=== PATIENT | female | born 1950 | race African-American/Black ===

== ENCOUNTER 2016-10-20 19:07 | Emergency (ER) | payer MEDICAID ==
--- NOTE | 2016-10-20 20:20 | ER Document Report ---
ED General - General Mode of Arrival: Medic Information source: Transfer Record TRAVEL OUTSIDE OF THE [place] IN LAST 30 DAYS: No - HPI Onset: Other - see narrative <GIUSEPPE FELIX - Last Filed: 10/20/16 23:41> <PAKO DEL ANGEL - Last Filed: 10/22/16 01:29> - General Chief Complaint: Other Stated Complaint: GENERALIZED PAIN Notes: Patient is a 66-year-old female with schizophrenia, dementia, and bipolar disorder that presents to the emergency department today with complaints of a fall yesterday. Patient is a poor historian secondary to her underlying disease so history is limited. Transfer record is also very limited however the transfer reports states "pain all over" as reason for transfer here. Patient has swelling to her left ankle but no other injuries are noted. (GIUSEPPE FELIX) - Related Data Allergies/Adverse Reactions: Butyrophenones Allergy (Unknown, Verified 09/18/15 10:30) droperidol [Droperidol] Allergy (Unknown, Verified 09/18/15 10:30) haloperidol [From Haldol] Allergy (Unknown, Verified 09/18/15 10:30) Phenothiazines Allergy (Unknown, Verified 09/18/15 10:30) trihexyphenidyl HCl [From Artane] Allergy (Unknown, Verified 09/18/15 10:30) Past Medical History - General Information source: Transfer Record, [facility] Records Cannot obtain history due to: Dementia - Social History Smoking Status: Unknown if Ever Smoked Frequency of alcohol use: None Drug Abuse: None [facility] with: [facility] Family History: Reviewed & Not Pertinent, Other - Unable to obtain - Past Medical History Cardiac Medical History: Reports: Hx Hypertension GI Medical History: Reports: Hx Gastroesophageal Reflux Disease Psychiatric Medical History: Reports: Hx Bipolar Disorder, Hx Dementia, Hx Schizoaffective Disorder, Hx Schizophrenia - Immunizations Immunizations up to date: Yes Hx Diphtheria, Pertussis, Tetanus Vaccination: No - unknown <GIUSEPPE FELIX - Last Filed: 10/20/16 23:41> Review of Systems - Review of Systems -: Yes ROS unobtainable due to patient's medical condition <GIUSEPPE FELIX - Last Filed: 10/20/16 23:41> Physical Exam <GIUSEPPE FELIX - Last Filed: 10/20/16 23:41> <PAKO DEL ANGEL - Last Filed: 10/22/16 01:29> - Vital signs Vitals: Temp Pulse Resp BP Pulse Ox 98.4 F 78 18 178/64 H 97 10/20/16 19:15 10/20/16 19:15 10/20/16 19:15 10/20/16 19:15 10/20/16 19:15 (GIUSEPPE FELIX) (PAKO DEL ANGEL) - Notes Notes: Physical Exam: General: Intermittent loud incomprehensible outbursts consistent with history in transfer records. HEENT: Normocephalic. Atraumatic. No obvious head trauma. PERRL. Extraocular movements intact. Oropharynx clear. Neck: Supple. Non-tender. Full range of motion. Respiratory: No respiratory distress. Clear and equal breath sounds bilaterally. Cardiovascular: Regular rate and rhythm. Abdominal: Obese. Non-tender. No distension. Normal Bowel Sounds. Back: Non-tender. No deformity or step off. Extremities: Moves all four extremities. Upper extremities: Normal inspection. Normal ROM. Lower extremities: Swelling over the left lateral malleolus. Neurological: Difficult speech pattern, appears chronic, does not appear to be stroke related. Cognitively at baseline according to transfer records. Psychological: unable to assess Skin: Warm. Dry. Normal color. (GIUSEPPE FELIX) Course - Laboratory Result Diagrams: 10/20/16 21:14 10/20/16 21:14 <GIUSEPPE FELIX - Last Filed: 10/20/16 23:41> - Laboratory Result Diagrams: 10/20/16 21:14 10/20/16 21:14 <PAKO DEL ANGEL - Last Filed: 10/22/16 01:29> - Re-evaluation Re-evalutation: 10/20/16 23:13 I personally performed the services described in the documentation, reviewed and edited the documentation which was dictated to my scribe in my presence, and it accurately records my words and actions. Patient presents to the emergency department history of schizophrenia Alzheimer' s dementia baseline noncommunicative chart says from the prison pain all over. They said pain in the arms leg chest back. Patient is unable to communicate that she has any pain there is a questionable history of fall there is no details of the fall from the prison full physical examination from head to toe patient has no external signs of trauma to the head full range of motion neck heart lungs chest abdomen pelvis back no obvious tenderness deformity full range of motion of bilateral hips full range of motion of the knees good perfusion and pulses appears that she has some swelling to the lateral malleolus of the left ankle a but she doesn't complain of pain there either. No pain at the base of the fifth metatarsal. Routine laboratory evaluation is nonacute x-ray of the pelvis hips and ankle no acute fracture some soft tissue swelling of the ankle consistent with a sprain poor historian no family members no good report from the prison no other acute concerns medically however given the nature of this patient with a negative acute examination today she needs to follow up with the primary care physician tomorrow and discussed with the prison reasons for ED return sooner (PAKO DEL ANGEL) - Vital Signs Vital signs: Temp Pulse Resp BP Pulse Ox 97.1 F 105 H 18 159/77 H 96 10/20/16 23:29 10/20/16 23:29 10/20/16 23:29 10/20/16 23:29 10/20/16 23:29 (GIUSEPPE FELIX) (PAKO DEL ANGEL) - Laboratory Laboratory results interpreted by me: 10/20/16 21:14 Seg Neuts % (Manual) 28 L Lymphocytes % (Manual) 52 H Monocytes % (Manual) 15 H (PAKO DEL ANGEL) Discharge <GIUSEPPE FELIX - Last Filed: 10/20/16 23:41> <PAKO DEL ANGEL - Last Filed: 10/22/16 01:29> - Discharge Clinical Impression: Schizo-affective schizophrenia, chronic condition Fall Qualifiers: Encounter type: initial encounter Qualified Code(s): W19.XXXA - Unspecified fall, initial encounter Ankle sprain Qualifiers: Encounter type: initial encounter Involved ligament of ankle: other ligament Laterality: left Qualified Code(s): S93.492A - Sprain of other ligament of left ankle, initial encounter Condition: Stable Disposition: HOME, SELF-CARE Instructions: Splint Precautions ([facility]), Sprained Ankle ([facility]) Referrals: SALEEM CARDONA MD [Primary Care Provider] - Follow up tomorrow (In one to 2 days return for increasing worsening or new symptoms) Scribe Documentation - Scribe Written by Scribe:: Rachel Ordaz, 2350 10/20/16 acting as scribe for :: Ron <GIUSEPPE FELIX - Last Filed: 10/20/16 23:41>
[2016-10-20 21:19] LABS: HEMATOCRIT 43.7 % (36.0-47.0); HEMOGLOBIN 14.7 g/dL (12.0-15.5); HGB HCT DIFFERENCE 0.4; MEAN CORPUSCULAR HEMOGLOBIN 31.6 pg (27.0-33.4); MEAN CORPUSCULAR HGB CONC 33.6 g/dL (32.0-36.0); MEAN CORPUSCULAR VOLUME 94 fl (80-97); RED BLOOD COUNT 4.65 10^6/uL (3.72-5.28); RED CELL DISTRIBUTION WIDTH 13.7 % (11.5-14.0)
[2016-10-20 21:35] LABS: BASOPHILS % (MANUAL) 0 % (0-2); EOSINOPHILS % (MANUAL) 1 % (0-6); LYMPHOCYTES % (MANUAL) 52 % (13-45); TOTAL CELLS COUNTED 100
[2016-10-20 21:36] LABS: ANION GAP 11 (5-19); BLOOD UREA NITROGEN 16 mg/dL (7-20); CALCIUM 9.2 mg/dL (8.4-10.2); CARBON DIOXIDE 30 mmol/L (22-30); CHLORIDE 103 mmol/L (98-107); CREATININE RESULT 0.77 mg/dL (0.52-1.25); GLUCOSE 100 mg/dL (75-110); SODIUM 144.1 mmol/L (137-145); TOXIC GRANULATION SLIGHT
[2016-10-20] MEDS ORDERED: LORAZEPAM INJ 2 MG/1 ML VIAL IM ONE (22:11)
[2016-10-20] MEDS ORDERED: LORAZEPAM INJ 2 MG/1 ML VIAL ONE (22:12)
[2016-10-20 23:37] VITALS: BP 159/77
== END 2016-10-20 23:15 | disposition home or self-care (01) ==
LOC: ER 19:07
DX: S93.492A Sprain of other ligament of left ankle, initial encounter (principal); R52 Pain, unspecified; M79.89 Other specified soft tissue disorders; F20.9 Schizophrenia, unspecified; F03.90 Unspecified dementia, unspecified severity, without behavioral disturbance, psychotic disturbance, mood disturbance, and anxiety; F31.9 Bipolar disorder, unspecified; W19.XXXD Unspecified fall, subsequent encounter
CPT/HCPCS: 99284; 96372; 36415; 85025; 80048; 84484; 73600; 72170; J2060

== ENCOUNTER 2016-10-21 17:27 | Emergency (ER) | payer MEDICAID ==
--- NOTE | 2016-10-21 18:16 | ER Document Report ---
ED General - General Chief Complaint: Anxiety Stated Complaint: BEHAVIORAL Time seen by provider: 18:15 Notes: This is a 66-year-old female with a history of Alzheimer's dementia and Parkinson's that presents today after a fall. Patient is a poor historian and does not speak coherently. She is from [facility]. According to the documentation provided she was trying to get up out of her wheelchair and fell onto the floor. She is at her baseline currently. TRAVEL OUTSIDE OF THE [place] IN LAST 30 DAYS: No - Related Data Allergies/Adverse Reactions: Butyrophenones Allergy (Unknown, Verified 09/18/15 10:30) droperidol [Droperidol] Allergy (Unknown, Verified 09/18/15 10:30) haloperidol [From Haldol] Allergy (Unknown, Verified 09/18/15 10:30) Phenothiazines Allergy (Unknown, Verified 09/18/15 10:30) trihexyphenidyl HCl [From Artane] Allergy (Unknown, Verified 09/18/15 10:30) Past Medical History - General Information source: Outside Facility Records Cannot obtain history due to: Dementia - Social History Smoking Status: Unknown if Ever Smoked Family History: Reviewed & Not Pertinent, Other - Unable to obtain - Past Medical History Cardiac Medical History: Reports: Hx Hypertension Pulmonary Medical History: Denies: Hx Tuberculosis GI Medical History: Reports: Hx Gastroesophageal Reflux Disease Psychiatric Medical History: Reports: Hx Bipolar Disorder, Hx Dementia, Hx Schizoaffective Disorder, Hx Schizophrenia - Immunizations Immunizations up to date: Yes Hx Diphtheria, Pertussis, Tetanus Vaccination: No - unknown Review of Systems - Review of Systems Notes: Patient has underlying dementia. Physical Exam - Vital signs Vitals: Temp Pulse BP Pulse Ox 97.8 F 73 151/78 H 97 10/21/16 18:37 10/21/16 18:37 10/21/16 18:37 10/21/16 18:37 - General General appearance: Appears well In distress: None - HEENT Head: Normocephalic, Atraumatic Eyes: Normal Conjunctiva: Normal - Respiratory Respiratory status: No respiratory distress Breath sounds: Normal. No: Rales, Rhonchi, Stridor, Wheezing - Cardiovascular Rhythm: Regular Heart sounds: Normal auscultation - Abdominal Inspection: Normal Bowel sounds: Normal Tenderness: Nontender - Patient did not display any discomfort while deeply palpating in all quadrants - Back Back: Normal - Extremities General upper extremity: Normal inspection, Nontender - Patient did not display any discomfort while palpating the upper extremity, Normal ROM - Patient had normal range of motion in shoulder and flex shoulder up above her head General lower extremity: Normal inspection, Nontender - Patient did not display any discomfort while palpating the lower extremity, Normal ROM - Patient could dorsiflex and plantarflex the feet bilaterally patient flex knees bilaterally to approximately 80 with full extension Course - Re-evaluation Re-evalutation: 10/21/16 18:42 Patient's vital signs at bedside. His blood pressure 151/78 pulse of 73 and pulse ox 97% on room air. Patient was examined with Dr. Spivey. On physical exam she complained of no pain and was able to move both arms and knees ankles. She had no pain to palpation of the abdomen and all the extremities. Patient asked for food and stated that she was hungry. She was seen here yesterday for a fall, and her ankle and bilateral hip was x-rayed and no acute findings were found. Vital signs are stable and she is at her baseline mentation. Lab work was reviewed from yesterday. Patient has normal temperature and is afebrile and not tachycardic and is in no distress. - Vital Signs Vital signs: Temp Pulse Resp BP Pulse Ox 97.8 F 75 20 124/60 95 10/21/16 18:37 10/21/16 21:20 10/21/16 21:20 10/21/16 21:20 10/21/16 21:20 Discharge - Discharge Clinical Impression: Fall Qualifiers: Encounter type: initial encounter Qualified Code(s): W19.XXXA - Unspecified fall, initial encounter Condition: Stable Disposition: HOME, SELF-CARE Instructions: Anxiety ([facility]) Additional Instructions: Return to the emergency department if symptoms worsen such as loss of consciousness, loss in sensation, loss of motor function, etc. follow-up with primary care physician. Referrals: [facility] [Provider Group] - Follow up as needed
[2016-10-21 21:32] VITALS: BP 124/60
== END 2016-10-21 21:00 | disposition home or self-care (01) ==
LOC: ER 17:27
DX: F41.9 Anxiety disorder, unspecified (principal); G30.9 Alzheimer's disease, unspecified; G20 Parkinson's disease; W19.XXXA Unspecified fall, initial encounter
CPT/HCPCS: 99283

== ENCOUNTER 2016-11-13 15:51 | Emergency (ER) | payer MEDICAID, OTHER ==
--- NOTE | 2016-11-13 16:49 | ER Document Report ---
ED General - General Chief Complaint: Fall Stated Complaint: FALL;HEAD INJURY Time seen by provider: 16:00 Mode of Arrival: Medic Information source: Emergency Med Personnel Notes: 66-year-old female resident of assisted living facility due to schizoaffective disorder who tripped and fell while walking landing on face. This occurred shortly prior to arrival. Staff reported to EMS personnel the patient received her usual Klonopin dose about 2 PM and fell about an hour and a half later. Mass reports that the patient seems slightly sleepier than her baseline but other than that her mental status seems consistent with what they are familiar with. The patient cannot provide useful history now. EMS personnel report patient does not seem to be in pain at the scene and they found no injuries on their examination except for swelling to the right forehead. Physical Exam: General: Awakens to voice HEENT: Normocephalic. 3 x 3 cm ecchymosis and swelling to the right forehead. No active bleeding is present. No bony deformities are palpated.. PERRLA. Extraocular movements intact. Membranes and canals clear. No otorhinorrhea. No bony deformities palpated face. Teeth intact Oropharynx clear. Mucous murmurs moist Neck: Supple. Non-tender. Good range of motion without discomfort no bony deformities Respiratory: No respiratory distress. Clear and equal breath sounds bilaterally. Cardiovascular: Regular rate and rhythm. Abdominal: Normal Inspection. Soft, non-tender. No distension. Normal Bowel Sounds. Back: Non-tender. No deformity or step off. Extremities: Moves all four extremities. Upper extremities: Normal inspection. Non-tender. Normal color. Normal ROM. Normal temperature. Lower extremities: Normal inspection. Non-tender. No edema. Normal color. Normal ROM. Normal temperature. Neurological: Patient awakens to voice and oriented to person only. She does move all 4 extremities to command but cannot fully cooperate with neurologic testing Psychological: Normal affect. Normal Mood. Skin: Warm. Dry. Normal color. TRAVEL OUTSIDE OF THE [place] IN LAST 30 DAYS: No - Related Data Allergies/Adverse Reactions: Butyrophenones Allergy (Unknown, Verified 09/18/15 10:30) droperidol [Droperidol] Allergy (Unknown, Verified 09/18/15 10:30) haloperidol [From Haldol] Allergy (Unknown, Verified 09/18/15 10:30) Phenothiazines Allergy (Unknown, Verified 09/18/15 10:30) trihexyphenidyl HCl [From Artane] Allergy (Unknown, Verified 09/18/15 10:30) Past Medical History - General Cannot obtain history due to: Mentally challenged - Social History Smoking Status: Unknown if Ever Smoked Family History: Other - Unable to obtain - Past Medical History Cardiac Medical History: Reports: Hx Hypertension Pulmonary Medical History: Denies: Hx Tuberculosis GI Medical History: Reports: Hx Gastroesophageal Reflux Disease Psychiatric Medical History: Reports: Hx Bipolar Disorder, Hx Dementia, Hx Schizoaffective Disorder, Hx Schizophrenia - Immunizations Immunizations up to date: Yes Hx Diphtheria, Pertussis, Tetanus Vaccination: No - unknown Review of Systems - Review of Systems -: Yes ROS unobtainable due to patient's medical condition Physical Exam - Vital signs Vitals: Temp Pulse Resp BP Pulse Ox 97.3 F 71 14 165/88 H 98 11/13/16 16:01 11/13/16 16:01 11/13/16 16:01 11/13/16 16:01 11/13/16 16:01 Course - Re-evaluation Re-evalutation: 11/13/16 16:48 EMS personnel report patient has been in her usual state of health recently except for the fall according to staff at her residence. Reevaluation of patient shows her to still awaken easily and follow commands. She does move all 4 extremities without apparent discomfort and passive range of motion testing elicits no discomfort. She is safe for discharge to return to her assisted living facility. Find no evidence to suggest there is an etiology for her fall other than simple reported trip 11/13/16 16:49 - Vital Signs Vital signs: Temp Pulse Resp BP Pulse Ox 97.3 F 71 14 165/88 H 98 11/13/16 16:01 11/13/16 16:01 11/13/16 16:01 11/13/16 16:01 11/13/16 16:01 - Diagnostic Test Radiology reviewed: Image reviewed, Reports reviewed Discharge - Discharge Clinical Impression: Contusion of forehead Qualifiers: Encounter type: initial encounter Qualified Code(s): S00.83XA - Contusion of other part of head, initial encounter Schizoaffective disorder Qualifiers: Schizoaffective disorder type: bipolar Qualified Code(s): F25.0 - Schizoaffective disorder, bipolar type Condition: Stable Disposition: HOME-ASSISTED LIVING Additional Instructions: Contusion Your injury has resulted in a contusion -- a crushing of the deep tissues. No injury to important structures was detected during the physician's exam. Contusions vary in the amount of pain they cause, and in the length of time required for healing. Typically, the area will become bruised, and will remain painful to touch for two or three weeks. However, most patients are back to working and playing within a few days. After the initial period of rest and cold-packs, your symptoms (together with the doctor's recommendations) will determine how rapidly you can get back to full activity. Usually this means "do what feels okay, but don't do things that hurt." If re-examination was recommended, it's important to follow up as instructed. Call the doctor or return any time if pain increases, if swelling becomes severe, if you develop numbness or weakness in an injured extremity, or if any other alarming symptoms occur. Referrals: SALEEM CARDONA MD [ACTIVE STAFF] - Follow up in 3-5 days
[2016-11-13 17:36] VITALS: BP 154/98
== END 2016-11-13 17:38 | disposition home health service (06) ==
LOC: ER 15:51
DX: S00.83XA Contusion of other part of head, initial encounter (principal); W19.XXXA Unspecified fall, initial encounter; Y93.01 Activity, walking, marching and hiking; Y92.199 Unspecified place in other specified residential institution as the place of occurrence of the external cause; Z79.899 Other long term (current) drug therapy; F25.0 Schizoaffective disorder, bipolar type; I10 Essential (primary) hypertension; Z88.8 Allergy status to other drugs, medicaments and biological substances
CPT/HCPCS: 99285; 70450; 72125; L0120

== ENCOUNTER 2016-12-29 14:06 | Emergency (ER) | payer MEDICAID ==
--- NOTE | 2016-12-29 15:11 | ER Document Report ---
ED Fall - General Mode of Arrival: Medic TRAVEL OUTSIDE OF THE [place] IN LAST 30 DAYS: No - HPI Occurred: Just prior to arrival Where: Residential Context: Lost balance Prehospital interventions: C-collar - General Stated Complaint: FALL/HEAD LACERATIONS Notes: Patient is a 66-year-old female that presents to the emergency department today secondary to a fall that occurred at her nursing facility just prior to arrival. According to EMS, the patient was standing to go to the restroom and she lost her balance. Patient has frequent falls. History is limited secondary to the patient's mental status, which is at baseline. Patient is in c -collar on arrival with bandaging over forehead. EMS reports shelter staff noted no loss of consciousness during the fall. (GIUSEPPE FELIX) - Related data Allergies/Adverse Reactions: Butyrophenones Allergy (Unknown, Verified 09/18/15 10:30) droperidol [Droperidol] Allergy (Unknown, Verified 09/18/15 10:30) haloperidol [From Haldol] Allergy (Unknown, Verified 09/18/15 10:30) Phenothiazines Allergy (Unknown, Verified 09/18/15 10:30) trihexyphenidyl HCl [From Artane] Allergy (Unknown, Verified 09/18/15 10:30) Past Medical History - General Information source: [facility] Records Cannot obtain history due to: Dementia, Mentally challenged - Social History Smoking Status: Never Smoker Cigarette use (# per day): No Frequency of alcohol use: None Drug Abuse: None Lives with: [facility] Family History: Reviewed & Not Pertinent, Other - Unable to obtain - Past Medical History Cardiac Medical History: Reports: Hx Hypertension GI Medical History: Reports: Hx Gastroesophageal Reflux Disease Psychiatric Medical History: Reports: Hx Bipolar Disorder, Hx Dementia, Hx Schizoaffective Disorder, Hx Schizophrenia Surgical Hx: Negative - Immunizations Immunizations up to date: Yes Hx Diphtheria, Pertussis, Tetanus Vaccination: No - unknown Review of Systems - Review of Systems -: Yes ROS unobtainable due to patient's medical condition - Patient is a difficult historian, is at baseline according to records Physical Exam - Notes Notes: Physical Exam: General: Alert, at baseline according to old records. HEENT: Normocephalic. PERRL. Extraocular movements intact. Oropharynx clear. See skin exam for laceration description. Neck: In c-collar, c-collar not removed. Respiratory: No respiratory distress. Clear and equal breath sounds bilaterally. Cardiovascular: Regular rate and rhythm. Abdominal: Obese. Non-tender. No distension. Normal Bowel Sounds. Back: Non-tender. No deformity or step off. Extremities: Moves all four extremities. Upper extremities: Normal inspection. Normal ROM. No edema. Lower extremities: Normal inspection. No edema. Normal ROM. Neurological: Neurologically at baseline according to previous records Psychological: Unable to assess Skin: Bandaging over forehead removed, 1.5 cm laceration vertically on forehead with approximately 30 angulation with an additional 1.5 cm laceration. Surrounding contusion with swelling. Bleeding is controlled. (GIUSEPPE FELIX) Course - Re-evaluation Re-evalutation: 12/29/16 15:[address] reviewed, negative for acute injury, hematoma on forehead noted. (GIUSEPPE FELIX) Discharge - Discharge Clinical Impression: Forehead laceration Qualifiers: Encounter type: initial encounter Qualified Code(s): S01.81XA - Laceration without foreign body of other part of head, initial encounter Fall Qualifiers: Encounter type: initial encounter Qualified Code(s): W19.XXXA - Unspecified fall, initial encounter Condition: Stable Disposition: HOME, SELF-CARE Instructions: Care of Steri-Strip Closure ([facility]) Additional Instructions: Facial Laceration: If the dressing gets wet or blood soaked, remove it and blot the wound dry, then reapply a new dressing. Unless you were instructed otherwise, dressings should be changed at least daily. If any signs of infection occur (swelling, redness, increasing tenderness) , see your doctor immediately. You have a contusion laceration to the forehead. The wound was closed with Steri-Strips. Keep the area dry and avoid disturbing the Steri-Strips. Follow-up with your doctor if any problems. RETURN TO THE EMERGENCY ROOM IF ANY NEW OR WORSENING SYMPTOMS. Scribe Attestation: 12/29/16 15:20 I personally performed the services described in the documentation, reviewed and edited the documentation which was dictated to the scribe in my presence, and it accurately records my words and actions. (SIENNA SHELLEY) Scribe Documentation - Scribe Written by Scribe:: Rachel Ordaz, 12/29/2016 1551 acting as scribe for :: Sacha
[2016-12-29 16:52] VITALS: BP 130/68
== END 2016-12-29 16:00 | disposition home or self-care (01) ==
LOC: ER 14:06
DX: S01.81XA Laceration without foreign body of other part of head, initial encounter (principal); W19.XXXA Unspecified fall, initial encounter; Z91.81 History of falling
CPT/HCPCS: 70450; 72125; 99284

== ENCOUNTER 2017-01-20 20:46 | Emergency (ER) | payer MEDICAID ==
[2017-01-20] MEDS ORDERED: LORAZEPAM INJ 2 MG/1 ML VIAL IV ONE ×2 (22:03→23:48)
--- NOTE | 2017-01-20 22:12 | ER Document Report ---
ED General - General Chief Complaint: Altered Mental Status Stated Complaint: ALTERED MENTAL STATUS Mode of Arrival: Medic Information source: Emergency Med Personnel, [facility] Records Cannot obtain history due to: Dementia, Mentally challenged Notes: This is a 66-year-old female resident of [facility] that has a history of dementia, MR, and schizophrenia. She was referred to the emergency department today for altered mental status. History is obtained from EMS and from the enterprise application administrator at [facility] who I contacted by phone. Staff at [facility] state that patient has seemed more emotional than the past 24 hours and at times has been agitated. They state that her emotional state has been different for her and they were concerned about a possible urinary tract infection. She's had no fevers or vomiting per [facility] staff. She has been seen multiple times in the emergency department for frequent falls but nursing staff did not report a new fall. TRAVEL OUTSIDE OF THE [place] IN LAST 30 DAYS: No - Related Data Allergies/Adverse Reactions: Butyrophenones Allergy (Unknown, Verified 09/18/15 10:30) droperidol [Droperidol] Allergy (Unknown, Verified 09/18/15 10:30) haloperidol [From Haldol] Allergy (Unknown, Verified 09/18/15 10:30) Phenothiazines Allergy (Unknown, Verified 09/18/15 10:30) trihexyphenidyl HCl [From Artane] Allergy (Unknown, Verified 09/18/15 10:30) Past Medical History - General Information source: [facility] Records Cannot obtain history due to: Dementia, Mentally challenged - Social History Smoking Status: Never Smoker Frequency of alcohol use: None Drug Abuse: None Lives with: Custodial Family History: Reviewed & Not Pertinent, Other - Unable to obtain - Past Medical History Cardiac Medical History: Reports: Hx Hypertension Pulmonary Medical History: Denies: Hx Tuberculosis GI Medical History: Reports: Hx Gastroesophageal Reflux Disease Psychiatric Medical History: Reports: Hx Bipolar Disorder, Hx Dementia, Hx Schizoaffective Disorder, Hx Schizophrenia - Immunizations Immunizations up to date: Yes Hx Diphtheria, Pertussis, Tetanus Vaccination: No - unknown Review of Systems - Review of Systems -: Yes ROS unobtainable due to patient's medical condition Physical Exam - Vital signs Vitals: Temp Pulse Resp BP Pulse Ox 98.4 F 114 H 16 156/87 H 100 01/20/17 21:39 01/20/17 21:39 01/20/17 21:39 01/20/17 21:39 01/20/17 21:39 - Notes Notes: PHYSICAL EXAMINATION: GENERAL: alert, somewhat agitated, conversant HEAD: Atraumatic, normocephalic. EYES: Pupils equal round and reactive to light, extraocular movements intact, sclera anicteric, conjunctiva are normal. ENT: nares patent, oropharynx clear without exudates. Moist mucous membranes. NECK: Normal range of motion, supple without lymphadenopathy LUNGS: Breath sounds clear to auscultation bilaterally and equal. No wheezes rales or rhonchi. HEART: Regular rate and rhythm without murmurs ABDOMEN: Soft, nontender, normoactive bowel sounds. No guarding, no rebound. No masses appreciated. EXTREMITIES: Normal range of motion, no edema. NEUROLOGICAL: Cranial nerves grossly intact. Exam limited secondary to dementia and MR, but pt moves all 4 spontaneously and symmetrically, no obvious focal motor deficit appreciated PSYCH: agitated SKIN: Warm, Dry, normal turgor, no rashes or lesions noted. Course - Re-evaluation Re-evalutation: 01/20/17 22:12 Discussed with staff at [facility]. They state that patient mental status is close to her baseline, but that she has been more emotional and agitated for the past 24 hours. They are concerned that her symptoms may be secondary to UTI. Pt became more agitated despite multiple doses of Ativan. She then responded well to IM Geodon and Benadryl, and was noted to rest comfortably in the ER with stable vital signs, afebrile. She has received IM Rocephin for her UTI, and will be discharged on oral antibiotics and close follow up with PCP at her nursing facility. - Vital Signs Vital signs: Temp Pulse Resp BP Pulse Ox 98.2 F 90 16 126/78 H 98 01/21/17 05:02 01/21/17 05:02 01/21/17 05:02 01/21/17 05:02 01/21/17 05:02 - Laboratory Result Diagrams: 01/21/17 01:39 01/21/17 01:39 Laboratory results interpreted by me: 01/21/17 01/21/17 01/21/17 01:39 01:39 01:50 RDW 14.3 H Seg Neutrophils % 29.4 L Lymphocytes % 57.1 H Sodium 148.1 H Potassium 3.5 L AST 39 H Urine Protein 30 H Urine Ketones TRACE H Urine Urobilinogen 4.0 H Ur Leukocyte Esterase MODERATE H Discharge - Discharge Clinical Impression: UTI (urinary tract infection) Qualifiers: Urinary tract infection type: site unspecified Hematuria presence: without hematuria Qualified Code(s): N39.0 - Urinary tract infection, site not specified Altered mental status, unspecified Qualifiers: Altered mental status type: unspecified Qualified Code(s): R41.82 - Altered mental status, unspecified Dementia Qualifiers: Dementia type: unspecified type Dementia behavioral disturbance: without behavioral disturbance Qualified Code(s): F03.90 - Unspecified dementia without behavioral disturbance Condition: Stable Disposition: HOME, SELF-CARE Additional Instructions: URINARY TRACT INFECTION: Your evaluation indicates that you have a urinary tract infection. This is due to germs growing in the bladder. This is a common problem. This infection usually responds quickly to antibiotics. Your antibiotic should be taken exactly as prescribed. Drink plenty of fluids -- three to four quarts a day. Occasionally, a bladder anesthetic will be prescribed to help stop the feeling of urgency until the antibiotic has a chance to clear the infection. This may cause your urine to be dark orange. Certain urine infections require a culture. If the doctor obtained a culture, the results will be back in two days. You should call to see if a change in treatment is needed. A repeat urinalysis after you finish treatment is often recommended. The physician will let you know if further testing is required. Call the doctor if you develop fever, chills, flank pain, inability to urinate, or blood in the urine. ANTIBIOTIC THERAPY: You have been given an antibiotic prescription. It's important that you take all the medication, unless instructed otherwise by your physician. Failure to complete the entire course can result in relapse of your condition. Common side effects of antibiotics include nausea, intestinal cramping, or diarrhea. Women may develop vaginal yeast infections, and babies can get yeast (thrush) in the mouth following the use of antibiotics. Contact your physician if you develop significant side effects from this medication. Allergy to this antibiotic can result in hives, wheezing, faintness, or itching. If symptoms of allergy occur, stop the medication and call the doctor. TRIMETHOPRIM-SULFA: You have been given a prescription for trimethoprim-sulfa (TMS, Septra, Bactrim). This is a combination antibiotic of the sulfa class, often used for urinary tract infections, middle ear infections, bronchitis, shigella intestinal infection, and Pneumocystis pneumonia. TMS is usually well-tolerated. Occasional side effects include nausea and decreased appetite. Septra is not recommended for infants less than two months of age. Do not take this medication if you have experienced severe side effects or allergy to sulfa medicine. You should stop this medicine at once and contact your physician if you develop any rash, joint pain, shortness of breath, bruising, or jaundice ( yellow color in the skin), or if you develop any other new or unusual symptoms. FOLLOW-UP CARE: If you have been referred to a physician for follow-up care, call the physician s office for an appointment as you were instructed or within the next two days. If you experience worsening or a significant change in your symptoms, notify the physician immediately or return to the Emergency Department at any time for re-evaluation. Prescriptions: Sulfamethoxazole/Trimethoprim [Bactrim Ds Tablet] 1 each PO BID #14 tablet
[2017-01-21] MEDS ORDERED: LORAZEPAM INJ 2 MG/1 ML VIAL IM ONE (00:25)
[2017-01-21 01:58] LABS: ABSOLUTE EOSINOPHILS # (AUTO) 0.1 10^3/uL (0.0-0.6); ABSOLUTE LYMPHOCYTES (AUTO) 3.6 10^3/uL (0.5-4.7); ABSOLUTE MONOCYTES (AUTO) 0.8 10^3/uL (0.1-1.4); ABSOLUTE NEUT (AUTO) 1.9 10^3/uL (1.7-8.2); BASOPHILS % (AUTO) 0.4 % (0-2); HEMATOCRIT 39.3 % (36.0-47.0); HEMOGLOBIN 13.5 g/dL (12.0-15.5); HGB HCT DIFFERENCE 1.2; LYMPHOCYTES % (AUTO) 57.1 % (13-45); MEAN CORPUSCULAR HEMOGLOBIN 32.2 pg (27.0-33.4); MEAN CORPUSCULAR HGB CONC 34.4 g/dL (32.0-36.0); MEAN CORPUSCULAR VOLUME 94 fl (80-97); MONOCYTES % (AUTO) 12.1 % (3-13); RED CELL DISTRIBUTION WIDTH 14.3 % (11.5-14.0); SEGMENTED NEUTROPHILS % (AUTO) 29.4 % (42-78); WHITE BLOOD COUNT 6.3 10^3/uL (4.0-10.5)
[2017-01-21 02:05] LABS: ALANINE AMINOTRANSFERASE 30 U/L (9-52); ALBUMIN 3.9 g/dL (3.5-5.0); ALKALINE PHOSPHATASE 77 U/L (38-126); ANION GAP 16 (5-19); ASPARTATE AMINO TRANSFERASE 39 U/L (14-36); BILIRUBIN,DIRECT 0.4 mg/dL (0.0-0.4); BILIRUBIN,TOTAL 0.9 mg/dL (0.2-1.3); BLOOD UREA NITROGEN 12 mg/dL (7-20); CALCIUM 9.6 mg/dL (8.4-10.2); CARBON DIOXIDE 26 mmol/L (22-30); CHLORIDE 106 mmol/L (98-107); CREATININE RESULT 0.72 mg/dL (0.52-1.25); GLUCOSE 93 mg/dL (75-110); POTASSIUM 3.5 mmol/L (3.6-5.0); SODIUM 148.1 mmol/L (137-145); TOTAL PROTEIN 7.6 g/dL (6.3-8.2)
[2017-01-21 02:09] LABS: APPEARANCE,URINE CLOUDY; BILIRUBIN,URINE NEGATIVE (NEGATIVE); GLUCOSE, URINE NEGATIVE (NEGATIVE); KETONES,URINE TRACE mg/dL (NEGATIVE); LEUKOCYTE ESTERASE,URINE MODERATE (NEGATIVE); NITRITE,URINE NEGATIVE (NEGATIVE); PROTEIN,URINE 30 mg/dL (NEGATIVE); URINE SPECIFIC GRAVITY 1.021
[2017-01-21] MEDS ORDERED: CEFTRIAXONE 1 GM/D5W RTU 50 ML IV ONE (02:49)
[2017-01-21] MEDS ORDERED: LIDOCAINE 1% INJ-PF (10 MG/ML) 30 ML SDV INJ ONE (03:25)
[2017-01-21] MEDS ORDERED: CEFTRIAXONE INJ 1000 MG VIAL IM ONE (03:25)
[2017-01-21] MEDS ORDERED: DIPHENHYDRAMINE HCL 50 MG/ML VIAL IM ONE (03:49)
[2017-01-21] MEDS ORDERED: ZIPRASIDONE MESYLATE INJ/PF 20 MG SDV IM ONE (03:50)
[2017-01-21] MEDS ORDERED: DIPHENHYDRAMINE HCL 50 MG/ML VIAL IV ONE (03:50)
[2017-01-21 07:06] VITALS: BP 156/99
== END 2017-01-21 06:36 | disposition home or self-care (01) ==
LOC: ER 20:46
DX: N39.0 Urinary tract infection, site not specified (principal); R41.82 Altered mental status, unspecified; F03.90 Unspecified dementia, unspecified severity, without behavioral disturbance, psychotic disturbance, mood disturbance, and anxiety; F20.9 Schizophrenia, unspecified
CPT/HCPCS: 99285; 96372; 96374; 36415; 85025; 80053; 81001; J1200; J3490; J2060 ×2; J3486; J0696

== ENCOUNTER 2017-02-05 10:25 | Emergency (ER) | payer MEDICAID ==
[2017-02-05] MEDS ORDERED: FENTANYL CITRATE INJ/PF 100 MCG/2 ML AMPUL IM ONE (10:38)
--- NOTE | 2017-02-05 10:39 | ER Document Report ---
ED General - General Mode of Arrival: Medic Information source: Patient, Emergency Med Personnel Cannot obtain history due to: Dementia TRAVEL OUTSIDE OF THE [place] IN LAST 30 DAYS: No - HPI Patient complains to provider of: Abdominal Pain Onset: This morning <CHLOE MAYNARD - Last Filed: 02/05/17 10:40> <SIENNA SHELLEY - Last Filed: 02/05/17 14:51> - General Chief Complaint: Abdominal Pain Stated Complaint: GENERALIZED PAIN Notes: Patient is a 66-year-old female, with history of dementia, schizophrenia, and MR, presenting to the emergency Department today from [facility] with concerns stomach pain onset this morning. Patient is unable to give a history much more than stating that her stomach is hurting secondary to her dementia and difficulty speaking. She points to her upper stomach. According to [facility] records, patient has history of GERD. (CHLOE MAYNARD) - Related Data Allergies/Adverse Reactions: Butyrophenones Allergy (Unknown, Verified 09/18/15 10:30) droperidol [Droperidol] Allergy (Unknown, Verified 09/18/15 10:30) haloperidol [From Haldol] Allergy (Unknown, Verified 09/18/15 10:30) Phenothiazines Allergy (Unknown, Verified 09/18/15 10:30) trihexyphenidyl HCl [From Artane] Allergy (Unknown, Verified 09/18/15 10:30) Past Medical History - General Information source: Patient, Emergency Med Personnel, Outside Facility Records - Social History Smoking Status: Unknown if Ever Smoked Family History: Reviewed & Not Pertinent - Past Medical History Cardiac Medical History: Reports: Hx Hypertension GI Medical History: Reports: Hx Gastroesophageal Reflux Disease Psychiatric Medical History: Reports: Hx Bipolar Disorder, Hx Dementia, Hx Schizoaffective Disorder, Hx Schizophrenia - Immunizations Immunizations up to date: Yes Hx Diphtheria, Pertussis, Tetanus Vaccination: No - unknown <CHLOE MAYNARD - Last Filed: 02/05/17 10:40> Review of Systems - Review of Systems Constitutional: No symptoms reported EENT: No symptoms reported Cardiovascular: No symptoms reported Respiratory: No symptoms reported Gastrointestinal: See HPI, Abdominal pain Genitourinary: No symptoms reported Female Genitourinary: No symptoms reported Musculoskeletal: No symptoms reported Skin: No symptoms reported Hematologic/Lymphatic: No symptoms reported Neurological/Psychological: No symptoms reported -: Yes All other systems reviewed and negative <CHLOE MAYNARD - Last Filed: 02/05/17 10:40> Physical Exam - General General appearance: Alert - HEENT Head: Normocephalic, Atraumatic Eyes: Normal Pupils: PERRL - Respiratory Respiratory status: No respiratory distress Chest status: Nontender Breath sounds: Normal Chest palpation: Normal - Cardiovascular Rhythm: Regular Heart sounds: Normal auscultation Murmur: No - Abdominal Inspection: Obese Distension: No distension Bowel sounds: Normal Tenderness: Tender - Difficult to tell where tender secondary to guarding and moaning, Guarding - Back Back: Normal, Nontender - Extremities General upper extremity: Other - Significant tremor, left > right General lower extremity: Normal inspection, Nontender - Neurological Neuro grossly intact: Yes Cognition: Other - History of dementia and MR Edith Coma Scale Eye Opening: Spontaneous Edith Coma Scale Verbal: Oriented Edith Coma Scale Motor: Obeys Commands Edith Coma Scale Total: 15 - Psychological Associated symptoms: Normal affect, Normal mood - Skin Skin Temperature: Warm Skin Moisture: Dry Skin Color: Normal <CHLOE MAYNARD - Last Filed: 02/05/17 10:40> Course <CHLOE MAYNARD - Last Filed: 02/05/17 10:40> - Laboratory Result Diagrams: 02/05/17 10:55 02/05/17 10:55 <SIENNA SHELLEY - Last Filed: 02/05/17 14:51> - Re-evaluation Re-evalutation: 02/05/17 14:48 The patient did have a soft bowel movement after she returned from x-ray. X- ray suggested possibly a mild fecal impaction. She was given an enema which got some more results. At this time her abdomen is softer than it was earlier, as good bowel sounds, does not really seem that tender. She continues to moan and cry out but she states that she has pain all over, not just the abdomen. Her lab work does not suggest an infectious process. She is difficult to evaluate due to her mental retardation and psychiatric problems. (SIENNA SHELLEY) - Vital Signs Vital signs: Temp Pulse Resp BP Pulse Ox 97.7 F 14 143/51 H 90 L 02/05/17 10:40 02/05/17 13:00 02/05/17 10:40 02/05/17 10:40 - Laboratory Laboratory results interpreted by me: 02/05/17 02/05/17 02/05/17 10:55 10:55 11:52 RDW 14.6 H Seg Neuts % (Manual) 24 L Lymphocytes % (Manual) 59 H Abs Neuts (Manual) 1.0 L Sodium 146.4 H Direct Bilirubin 0.5 H Albumin 3.3 L Urine Protein 30 H Urine Ketones TRACE H Urine Urobilinogen 2.0 H Discharge <CHLOE MAYNARD - Last Filed: 02/05/17 10:40> <SIENNA SHELLEY - Last Filed: 02/05/17 14:51> - Discharge Clinical Impression: Gaseous distention of intestine determined by X-ray Abdominal pain Qualifiers: Abdominal location: generalized Qualified Code(s): R10.84 - Generalized abdominal pain Schizoaffective disorder Qualifiers: Schizoaffective disorder type: unspecified Qualified Code(s): F25.9 - Schizoaffective disorder, unspecified Condition: Stable Disposition: HOME, SELF-CARE Additional Instructions: Your abdominal pain seems to most likely be due to the gaseous distention of your colon. This will require time to pass the gas. No other abnormalities were found on evaluation. Follow-up with your medical doctor if not improving. RETURN TO THE EMERGENCY ROOM IF ANY NEW OR WORSENING SYMPTOMS. Scribe Attestation: 02/05/17 14:51 I personally performed the services described in the documentation, reviewed and edited the documentation which was dictated to the scribe in my presence, and it accurately records my words and actions. (SIENNA SHELLEY) Scribe Documentation - Scribe Written by Rachel:: Chloe Maynard 02/05/2017 1036 acting as scribe for :: Sacha <CHLOE MAYNARD - Last Filed: 02/05/17 10:40>
[2017-02-05 11:26] LABS: HEMATOCRIT 40.7 % (36.0-47.0); HEMOGLOBIN 13.5 g/dL (12.0-15.5); HGB HCT DIFFERENCE -0.2; MEAN CORPUSCULAR HEMOGLOBIN 32.1 pg (27.0-33.4); MEAN CORPUSCULAR HGB CONC 33.3 g/dL (32.0-36.0); MEAN CORPUSCULAR VOLUME 96 fl (80-97); RED BLOOD COUNT 4.22 10^6/uL (3.72-5.28); RED CELL DISTRIBUTION WIDTH 14.6 % (11.5-14.0)
[2017-02-05 11:36] LABS: ALANINE AMINOTRANSFERASE 28 U/L (9-52); ALBUMIN 3.3 g/dL (3.5-5.0); ALKALINE PHOSPHATASE 71 U/L (38-126); ANION GAP 13 (5-19); ASPARTATE AMINO TRANSFERASE 33 U/L (14-36); BILIRUBIN,DIRECT 0.5 mg/dL (0.0-0.4); BILIRUBIN,TOTAL 0.8 mg/dL (0.2-1.3); BLOOD UREA NITROGEN 12 mg/dL (7-20); CALCIUM 9.1 mg/dL (8.4-10.2); CARBON DIOXIDE 27 mmol/L (22-30); CHLORIDE 106 mmol/L (98-107); GLUCOSE 83 mg/dL (75-110); POTASSIUM 3.9 mmol/L (3.6-5.0); SODIUM 146.4 mmol/L (137-145); TOTAL PROTEIN 7.3 g/dL (6.3-8.2)
[2017-02-05 11:59] LABS: BASOPHILS % (MANUAL) 1 % (0-2); EOSINOPHILS % (MANUAL) 2 % (0-6); LYMPHOCYTES % (MANUAL) 59 % (13-45); TOTAL CELLS COUNTED 100
[2017-02-05 12:00] LABS: ANISOCYTOSIS SLIGHT; POIKILOCYTOSIS 1+; POLYCHROMASIA SLIGHT; TEAR DROP CELLS 1+
[2017-02-05 12:10] LABS: APPEARANCE,URINE CLEAR; BILIRUBIN,URINE NEGATIVE (NEGATIVE); GLUCOSE, URINE NEGATIVE (NEGATIVE); KETONES,URINE TRACE mg/dL (NEGATIVE); LEUKOCYTE ESTERASE,URINE NEGATIVE (NEGATIVE); NITRITE,URINE NEGATIVE (NEGATIVE); PROTEIN,URINE 30 mg/dL (NEGATIVE); URINE SPECIFIC GRAVITY 1.029
[2017-02-05] MEDS ORDERED: MINERAL OIL 30 ML UDCUP PR ONE (12:36)
[2017-02-05 15:58] VITALS: BP 109/53
== END 2017-02-05 16:11 | disposition home or self-care (01) ==
LOC: ER 10:25
DX: K63.89 Other specified diseases of intestine (principal); R10.84 Generalized abdominal pain; F25.9 Schizoaffective disorder, unspecified; F03.90 Unspecified dementia, unspecified severity, without behavioral disturbance, psychotic disturbance, mood disturbance, and anxiety; I10 Essential (primary) hypertension; E66.9 Obesity, unspecified; F79 Unspecified intellectual disabilities
CPT/HCPCS: 99285; 96372; 51701; 36415; 85025; 80053; 81001; 74022; J3010; J3490

== ENCOUNTER 2017-02-12 16:58 | Emergency (ER) | payer MEDICAID ==
--- NOTE | 2017-02-12 18:45 | ER Document Report ---
ED General - General Chief Complaint: Abdominal Pain Stated Complaint: ABDOMINAL PAIN Time Seen by Provider: 02/12/17 17:49 Cannot obtain history due to: Dementia, Mentally challenged Notes: Patient is a 66-year-old female with a past medical history of dementia, mental retardation, schizophrenia, chronic pain and abdominal pain who presents apparently with 3 weeks of abdominal pain. She was seen in this emergency department 7 days ago for the same complaint and had a reassuring evaluation at that time. No additional history can be obtained as the patient does not communicate in a comprehensible manner. TRAVEL OUTSIDE OF THE [place] IN LAST 30 DAYS: No - Related Data Allergies/Adverse Reactions: Butyrophenones Allergy (Unknown, Verified 02/12/17 17:38) droperidol [Droperidol] Allergy (Unknown, Verified 02/12/17 17:38) haloperidol [From Haldol] Allergy (Unknown, Verified 02/12/17 17:38) Phenothiazines Allergy (Unknown, Verified 02/12/17 17:38) trihexyphenidyl HCl [From Artane] Allergy (Unknown, Verified 02/12/17 17:38) Past Medical History - General Information source: Emergency Med Personnel Cannot obtain history due to: Dementia, Mentally challenged - Social History Smoking Status: Unknown if Ever Smoked Chew tobacco use (# tins/day): No Frequency of alcohol use: None Drug Abuse: None Lives with: [facility] Family History: Reviewed & Not Pertinent - Past Medical History Cardiac Medical History: Reports: Hx Hypertension Pulmonary Medical History: Denies: Hx Tuberculosis GI Medical History: Reports: Hx Gastroesophageal Reflux Disease Psychiatric Medical History: Reports: Hx Bipolar Disorder, Hx Dementia, Hx Schizoaffective Disorder, Hx Schizophrenia - Immunizations Immunizations up to date: Yes Hx Diphtheria, Pertussis, Tetanus Vaccination: No - unknown Review of Systems - Review of Systems -: Yes ROS unobtainable due to patient's medical condition Physical Exam - Vital signs Vitals: Temp Pulse Resp BP Pulse Ox 98.0 F 96 20 118/68 96 02/12/17 17:00 02/12/17 17:00 02/12/17 17:00 02/12/17 17:00 02/12/17 17:00 Interpretation: Normal Notes: PHYSICAL EXAMINATION: GENERAL: Frail, older than stated age in appearance but in no acute distress. Intermittently yelling out HEAD: Atraumatic, normocephalic. EYES: Pupils equal round and reactive to light, extraocular movements intact, sclera anicteric, conjunctiva are normal. ENT: nares patent, oropharynx clear without exudates. Moderately dry mucous membranes. NECK: Normal range of motion, supple without lymphadenopathy LUNGS: Breath sounds clear to auscultation bilaterally and equal. No wheezes rales or rhonchi. HEART: Regular rate and rhythm without murmurs ABDOMEN: Soft, no focal tenderness normoactive bowel sounds. No guarding, no rebound. No masses appreciated. EXTREMITIES: Normal range of motion, no pitting or edema. No cyanosis. NEUROLOGICAL: No focal neurological deficits. Moves all extremities spontaneously and on command. PSYCH: Agitated, crying out intermittently. Does not comprehensively communicate SKIN: Warm, Dry, normal turgor, no rashes or lesions noted. Course - Re-evaluation Re-evalutation: 02/12/17 18:44 Patient presents screaming, incomprehensible on exam. Reviewed chart send information from nursing facility indicates this is patient's baseline. Apparently she is combining abdominal pain although she will not actually tell me what's bothering her. She her abdomen is soft without any focal tenderness. She was seen in the emergency department about 10 days ago for the same thing at that time was apparently constipated. Patient frequently comes to the emergency department treated behavior related issues or nonspecific concerns from the nursing facility. Her vitals are within normal limits at time of assessment. She is in no distress other than intermittently screaming appears to be behavioral in origin. Abdomen is soft without any focal tenderness. Will send basic labs and screening for bowel obstruction or perforation with a KUB of the abdomen. 02/12/17 21:07 Labs, CT abdomen and pelvis unremarkable. Again I suspect at this point that her complaints regarding her abdomen may be more behavioral in origin as it does not appear that this is from any acute abnormality this is been unchanged over the last several months. She will be discharged back to her facility. - Vital Signs Vital signs: Temp Pulse Resp BP Pulse Ox 97.6 F 78 16 164/70 H 100 02/12/17 20:18 02/12/17 20:18 02/12/17 20:18 02/12/17 20:18 02/12/17 20:18 - Laboratory Result Diagrams: 02/12/17 18:45 Laboratory results interpreted by me: 02/12/17 18:45 Direct Bilirubin 0.5 H Albumin 3.4 L - Diagnostic Test Radiology reviewed: Reports reviewed Discharge - Discharge Clinical Impression: Agitation Abdominal pain Qualifiers: Abdominal location: generalized Qualified Code(s): R10.84 - Generalized abdominal pain Condition: Stable Disposition: HOME-SNF (ED ONLY) Additional Instructions: The patient's CT scan of her abdomen and pelvis and labs are again normal today. Exact cause of her complaints of abdominal pain is unclear but may be related to her underlying mental health and dementia. Return for any additional concerns including fever greater than 101F, vomiting, persistent diarrhea, or any additional concerns.
[2017-02-12 19:19] LABS: ALANINE AMINOTRANSFERASE 31 U/L (9-52); ALBUMIN 3.4 g/dL (3.5-5.0); ALKALINE PHOSPHATASE 72 U/L (38-126); ANION GAP 12 (5-19); ASPARTATE AMINO TRANSFERASE 34 U/L (14-36); BILIRUBIN,DIRECT 0.5 mg/dL (0.0-0.4); BILIRUBIN,TOTAL 0.9 mg/dL (0.2-1.3); BLOOD UREA NITROGEN 12 mg/dL (7-20); CALCIUM 9.6 mg/dL (8.4-10.2); CARBON DIOXIDE 26 mmol/L (22-30); CHLORIDE 104 mmol/L (98-107); CREATININE RESULT 0.69 mg/dL (0.52-1.25); GLUCOSE 86 mg/dL (75-110); LIPASE 82.4 U/L (23-300); POTASSIUM 3.6 mmol/L (3.6-5.0); SODIUM 142.3 mmol/L (137-145); TOTAL PROTEIN 7.3 g/dL (6.3-8.2)
[2017-02-12 21:51] VITALS: BP 152/72
== END 2017-02-12 22:12 ==
LOC: ER 16:58
DX: R10.84 Generalized abdominal pain (principal); R45.1 Restlessness and agitation; I10 Essential (primary) hypertension; F79 Unspecified intellectual disabilities; F03.90 Unspecified dementia, unspecified severity, without behavioral disturbance, psychotic disturbance, mood disturbance, and anxiety; Z88.8 Allergy status to other drugs, medicaments and biological substances; Z87.19 Personal history of other diseases of the digestive system
CPT/HCPCS: 36415; 74000; 74177; 80053; 83690; 84484; 99285

== ENCOUNTER 2017-05-14 06:23 | Emergency (ER) | payer MEDICAID ==
[2017-05-14] MEDS ORDERED: LIDOCAINE 1% INJ-PF (10 MG/ML) 30 ML SDV INJ ONE (06:53)
--- NOTE | 2017-05-14 06:57 | ER Document Report ---
ED General - General Chief Complaint: Fall Injury Stated Complaint: FALL, HEAD LACERATION Time Seen by Provider: 05/14/17 06:30 Mode of Arrival: Medic Information source: Patient, Emergency Med Personnel Cannot obtain history due to: Dementia Notes: 66-year-old female presents with lacerations to the forehead after an unwitnessed fall. Patient denies any other complaints c-collar has been ordered TRAVEL OUTSIDE OF THE [place] IN LAST 30 DAYS: No - HPI Onset: Just prior to arrival Onset/Duration: Sudden Quality of pain: No pain Severity: Mild Pain Level: Denies Associated symptoms: Other Exacerbated by: Denies Relieved by: Denies Similar symptoms previously: Yes Recently seen / treated by doctor: No - Related Data Allergies/Adverse Reactions: Butyrophenones Allergy (Unknown, Verified 02/12/17 17:38) droperidol [Droperidol] Allergy (Unknown, Verified 02/12/17 17:38) haloperidol [From Haldol] Allergy (Unknown, Verified 02/12/17 17:38) Phenothiazines Allergy (Unknown, Verified 02/12/17 17:38) trihexyphenidyl HCl [From Artane] Allergy (Unknown, Verified 02/12/17 17:38) Past Medical History - Social History Smoking Status: Never Smoker Cigarette use (# per day): No Chew tobacco use (# tins/day): No Smoking Education Provided: No Family History: Reviewed & Not Pertinent - Past Medical History Cardiac Medical History: Reports: Hx Hypertension Pulmonary Medical History: Denies: Hx Tuberculosis GI Medical History: Reports: Hx Gastroesophageal Reflux Disease Psychiatric Medical History: Reports: Hx Bipolar Disorder, Hx Dementia, Hx Schizoaffective Disorder, Hx Schizophrenia - Immunizations Immunizations up to date: Yes Hx Diphtheria, Pertussis, Tetanus Vaccination: No - unknown Review of Systems - Review of Systems Notes: REVIEW OF SYSTEMS: CONSTITUTIONAL : Denies fever, chills, or sweats. Denies recent illness. EENT: Denies eye, ear, throat, or mouth pain or symptoms. Denies nasal or sinus congestion or discharge. Denies throat, tongue, or mouth swelling or difficulty swallowing. CARDIOVASCULAR: Denies chest pain. Denies palpitations or racing or irregular heart beat. Denies ankle edema. RESPIRATORY: Denies cough, cold, or chest congestion. Denies shortness of breath, difficulty breathing, or wheezing. GASTROINTESTINAL: Denies abdominal pain or distention. Denies nausea, vomiting , or diarrhea. Denies blood in vomitus, stools, or per rectum. Denies black, tarry stools. Denies constipation. GENITOURINARY: Denies difficulty urinating, painful urination, burning, frequency, blood in urine, or discharge. FEMALE GENITOURINARY: Denies vaginal bleeding, heavy or abnormal periods, irregular periods. Denies vaginal discharge or odor. MUSCULOSKELETAL: Forehead laceration SKIN: Denies rash, lesions or sores. HEMATOLOGIC : Denies easy bruising or bleeding. LYMPHATIC: Denies swollen, enlarged glands. NEUROLOGICAL: Denies confusion or altered mental status. Denies passing out or loss of consciousness. Denies dizziness or lightheadedness. Denies headache. Denies weakness or paralysis or loss of use of either side. Denies problems with gait or speech. Denies sensory loss, numbness, or tingling. Denies seizures. PSYCHIATRIC: Denies anxiety or stress. Denies depression, suicidal ideation, or homicidal ideation. ALL OTHER SYSTEMS REVIEWED AND NEGATIVE. PHYSICAL EXAMINATION: GENERAL: Well-appearing, well-nourished and in no acute distress. HEAD: Atraumatic, normocephalic. EYES: Pupils equal round and reactive to light, extraocular movements intact, conjunctiva are normal. ENT: Nares patent, oropharynx clear without exudates. Moist mucous membranes. NECK: Normal range of motion, supple without lymphadenopathy LUNGS: Breath sounds clear to auscultation bilaterally and equal. No wheezes rales or rhonchi. HEART: Regular rate and rhythm without murmurs ABDOMEN: Soft, nontender, nondistended abdomen. No guarding, no rebound. No masses appreciated. Female : deferred Musculoskeletal: Normal range of motion, no pitting or edema. No cyanosis. NEUROLOGICAL: Per EMS baseline dementia and mentation patient answers some questions appropriately PSYCH: Intermittently yells SKIN: Forehead laceration in a V shape measuring 7 cm flap noted Dictation was performed using [employer] recognition software Physical Exam - Vital signs Vitals: Temp Pulse Resp BP Pulse Ox 98 F 83 16 134/96 H 95 05/14/17 06:25 05/14/17 06:25 05/14/17 06:25 05/14/17 06:25 05/14/17 06:25 Course - Re-evaluation Re-evalutation: 05/14/17 06:57 C-collar has been ordered imaging pending 05/14/17 07:37 ct imaging notes no acute fracture or bleed, 6 sutures placed, c collar removed. Patient has no other complaints After performing a Medical Screening Examination, I estimate there is LOW risk for INTRACRANIAL HEMORRHAGE, UNSTABLE SPINE FRACTURE, CENTRAL CORD SYNDROME, CAUDA EQUINA, THORACIC AORTIC DISSECTION, PNEUMOTHORAX, PERFORATED BOWEL, RUPTURED ABDOMINAL AORTIC ANEURYSM, ACUTE TENDON RUPTURE, COMPARTMENT SYNDROME, or OPEN FRACTURE, thus I consider the discharge disposition reasonable. Also, there is no evidence or peritonitis, sepsis, or toxicity. I have reevaluated this patient multiple times and no significant life threatening changes are noted. The patient and I have discussed the diagnosis and risks, and we agree with discharging home to follow-up with their primary doctor with the understanding that symptoms and presentations can change. We also discussed returning to the Emergency Department immediately if new or worsening symptoms occur. We have discussed the symptoms which are most concerning (e.g., bloody stool, fever, changing or worsening pain, vomiting) that necessitate immediate return. - Vital Signs Vital signs: Temp Pulse Resp BP Pulse Ox 98 F 83 16 134/96 H 95 05/14/17 06:25 05/14/17 06:25 05/14/17 06:25 05/14/17 06:25 05/14/17 06:25 - Diagnostic Test Radiology reviewed: Image reviewed, Reports reviewed - reports given to patient Procedures - Laceration/Wound Repair Upper Face Time completed: 07:38 Wound length (cm): 7 Wound's Depth, Shape: Superficial, Irregular, Flap Laceration pre-procedure: Sterile PPE donned, Sterile drapes applied, Shur- Clens applied Anesthetic type: 1% Lidocaine Volume Anesthetic (mLs): 7 Wound explored: Clean, No foreign body removed Irrigated w/ Saline (mLs): 2,000 Wound Debrided: Minimal Wound Repaired With: Sutures Suture Size/Type: 5:0, Ethilon Number of Sutures: 7 Post-procedure wound care: Sterile dressing applied Post-procedure NV exam normal: Yes Complications: No Discharge - Discharge Clinical Impression: Dementia Qualifiers: Dementia type: unspecified type Dementia behavioral disturbance: without behavioral disturbance Qualified Code(s): F03.90 - Unspecified dementia without behavioral disturbance Fall Qualifiers: Encounter type: initial encounter Qualified Code(s): W19.XXXA - Unspecified fall, initial encounter Forehead laceration Qualifiers: Encounter type: initial encounter Qualified Code(s): S01.81XA - Laceration without foreign body of other part of head, initial encounter Condition: Stable Disposition: HOME, SELF-CARE Instructions: Laceration Care (OM) Additional Instructions: Follow up in 5 days for suture removal or immediately if there are any other concerns or signs of infection
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
[2017-05-14 09:17] VITALS: BP 168/98
== END 2017-05-14 09:15 | disposition home or self-care (01) ==
LOC: ER 06:23
PROC: 0HQ1XZZ Repair Face Skin, External Approach (ICD-10-PCS; principal; 2017-05-14)
DX: S01.81XA Laceration without foreign body of other part of head, initial encounter (principal); W19.XXXA Unspecified fall, initial encounter; F03.90 Unspecified dementia, unspecified severity, without behavioral disturbance, psychotic disturbance, mood disturbance, and anxiety
CPT/HCPCS: 99283; 70450; 72125; 12014; L0120